=== PATIENT | male | born 1970 | race Caucasian/White ===

== ENCOUNTER 2016-03-09 19:00 | Emergency (ER) | payer SELFPAY ==
--- NOTE | 2016-03-09 19:57 | DIAGNOSTIC IMAGING REPORT ---
PROCEDURE: XR CHEST 1 VIEW INDICATION: COUGH TECHNIQUE: Portable AP view 07:30 p.m. COMPARISON: None. FINDINGS: Lungs are clear. Heart and mediastinum are normal. Thorax is normal. IMPRESSION: 1. Negative chest.
--- NOTE | 2016-03-10 00:42 | ED NURSING NOTES ---
Clinical Report - Nurses [facility] [address] [place] [address] 03/09/2016 19:00 Patient: MEMO DING TRIAGE Triage time 19:Mar 09 2016. Chief Complaint: SHORTNESS OF BREATH and DIFFICULTY BREATHING. Alert. MICHAEL COMA SCORE: Michael Coma Scale: 15- eyes open spontaneously (4); best verbal response- oriented x 4 (5); best motor response- obeys commands (6). --19:17 Marcial Navas R.N. 19:05 03/09/16. BP: 141/97. HR: 110. RR: 24. O2 saturation: 92% on room air. Temp: 99.4 F. Pain level now: 0/10. --19:17 Marcial Navas R.N. Weight: 68 kg stated. Height/Length: 70 inches Per Patient. BMI: 21.5. --19:09 Marcial aNvas R.N. Medications Albuterol Sulfate Inhalation, PRN. --19:13 Marcial Navas R.N. Medication/allergy information source: the patient. --19:17 Marcial Navas R.N. Allergies No Known Drug Allergy. --19:13 Marcial Navas R.N. History Arrived by private vehicle. Historian: patient. Accompanied by friend. Primary physician (none). ( SOB for the last 3 weeks.). Onset. (about 3 weeks ago). He has had a cough productive of moderate amounts of sputum. 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 PAST MEDICAL HX: Immunizations: up-to-date. SURGERY HX: No history of previous surgery. SOCIAL HX: Light tobacco smoker (cigarette)- less than 1/2 a pack per day. No alcohol use or drug use. No infectious disease exposure. ABUSE ASSESSMENT: No report of abuse. FALL RISK ASSESSMENT: Fall risk assessment completed. No fall risk identified. NUTRITIONAL RISK ASSESSMENT: The nutritional risk assessment revealed no deficiencies. FUNCTIONAL ASSESSMENT: Functional assessment: no impairments noted. LEARNING NEEDS ASSESSMENT: The learning needs assessment revealed no barriers. SKIN INTEGRITY ASSESSMENT: Skin integrity risk assessment completed. No skin integrity risk identified. --19:17 Marcial Navas R.N. PROBLEMS: Thyroid Disease. COPD - Chronic Obstructive Pulmonary Disease. --19:12 Marcial Navas R.N. ADDITIONAL SURGERIES: no known surgeries. Interventions ID band on patient. To treatment room. --19:17 Marcial Navas R.N. PHYSICAL ASSESSMENT Ambulatory to room. GENERAL / NEURO / PSYCH: Alert. Oriented X 4. HEENT: Mucous membranes are pink. RESPIRATORY: Moderate respiratory distress. Respirations not labored. Decreased breath sounds diffusely over both lungs. Expiratory and inspiratory bilateral wheezes diffusely. Breath sounds within normal limits. CVS: Cardiac rhythm: sinus tachycardia. Capillary refill less than 2 seconds. GI / : Abdomen soft and nontender. SKIN: Skin is warm and dry. Normal skin turgor. --19:16 Marcial Navas R.N. NURSING PROGRESS NOTES Oxygen administered by nasal cannula at 2 liters. Patient gowned. Reassurance given. Patient identifiers checked. Call light placed in reach. Side rails up. Bed placed in lowest position. Brakes of bed on. Patient ready for evaluation- chart flagged and ED physician and PA notified. --19:16 Marcial Navas R.N. 19:33 03/09/2016 Duoneb (Ipratropium-Albuterol) Neb TX 1 unit dose given. Given by the respiratory therapist. Allergies verified and confirmed 5 rights. --20:04 Marcial De La Cruz R.N. 19:56 03/09/2016 Site #1 started via IV in the left forearm with an 20g angiocath, with aseptic technique and good blood return; one attempt. Blood drawn: rainbow set. Labeled in the presence of the patient and sent to the lab. Saline lock flushed with 10 mL saline. --20:01 Marcial De La Cruz R.N. 19:57 03/09/2016 SOLU-MEDROL (MethylPREDNISolone Sodium Succ) IVP 125 mg given over 2 minute(s) via site #1. Allergies verified and confirmed 5 rights. IV patency established. IV site checked: no pain, redness, or swelling. IV flushed thoroughly pre- and post-medication administration. --20:01 Marcial De La Cruz R.N. 20:25 03/09/16. BP: 114/78. HR: 90. RR: 18. O2 saturation: 97%. Temp: 99 F (oral). Pain level now: 0/10. --20:27 Marcial Navas R.N. 19:58 03/09/2016 Albuterol Neb TX 7.5 mg given. Given by the respiratory therapist. Allergies verified and confirmed 5 rights. --22:03 Marcial De La Cruz R.N. 21:57 03/09/2016 Albuterol Neb TX 7.5 mg given. Given by the respiratory therapist. Allergies verified and confirmed 5 rights. --22:04 Marcial De La Cruz R.N. 22:03. Oxygen administered by nasal cannula at 2 liters. --22:05 Marcial De La Cruz R.N. 22:10. Oxygen administered (02 increased to 4lts). --22:10 Marcial De La Cruz R.N. 20:30 03/09/16. BP: 114/73. HR: 99. RR: 25. O2 saturation: 96% on room air. --22:40 Marcial Navas R.N. 21:00 03/09/16. BP: 115/66. HR: 106. RR: 29. O2 saturation: 94% on face mask at 6 liters/minute. --22:42 Marcial Navas R.N. 21:30 03/09/16. BP: 123/82. HR: 98. RR: 28. O2 saturation: 94% on face mask at 6 liters/minute. --22:44 Marcial Navas R.N. 22:00 03/09/16. BP: 107/66. HR: 104. RR: 27. O2 saturation: 94% on face mask at 6 liters/minute. --22:46 Marcial Navas R.N. 00:10 03/10/2016 Magnesium Sulfate (Magnesium Sulfate in D5W) IVP 2 gm given over 30 minute(s) via site #1. Allergies verified and confirmed 5 rights. IV patency established. IV site checked: no pain, redness, or swelling. IV flushed thoroughly pre- and post-medication administration. IVP given by --00:10 Marcial Navas R.N. DISPOSITION / DISCHARGE 00:35 03/10/16. BP: 115/68. HR: 88. RR: 18. O2 saturation: 91% on room air. Temp: 98.8 F (oral). Pain level now: 0/10. --05:06 Marcial Navas R.N. Departure time: 0045. --05:06 Marcial Navas R.N. 00:45. Condition at departure: improved. No learning barriers present. Discharge instructions provided and reviewed with the patient. Reviewed medication(s) precautions and dosing information (prescription given to pt). Reviewed referral to family practice. Patient verbalized understanding. Written instructions provided in Danish. The patient was discharged by the physician. He was discharged home and accompanied by front man. He left the Emergency Department ambulatory and via private vehicle. Counter Clerk driving. --05:09 Marcial Navas R.N. Locked/Released at 03/10/2016 5:09 by Marcial Navas R.N.
--- NOTE | 2016-03-10 00:42 | ED NURSING NOTES ---
Clinical Report - Nurses [facility] [address] [place] [address] 03/09/2016 19:00 Patient: MEMO DING TRIAGE Triage time 19:Mar 09 2016. Chief Complaint: SHORTNESS OF BREATH and DIFFICULTY BREATHING. Alert. MICHAEL COMA SCORE: Michael Coma Scale: 15- eyes open spontaneously (4); best verbal response- oriented x 4 (5); best motor response- obeys commands (6). --19:17 Marcial Navas R.N. 19:05 03/09/16. BP: 141/97. HR: 110. RR: 24. O2 saturation: 92% on room air. Temp: 99.4 F. Pain level now: 0/10. --19:17 Marcial Navas R.N. Weight: 68 kg stated. Height/Length: 70 inches Per Patient. BMI: 21.5. --19:09 Marcial Navas R.N. Medications Albuterol Sulfate Inhalation, PRN. --19:13 Marcial Navas R.N. Medication/allergy information source: the patient. --19:17 Marcial Navas R.N. Allergies No Known Drug Allergy. --19:13 Marcial Navas R.N. History Arrived by private vehicle. Historian: patient. Accompanied by friend. Primary physician (none). ( SOB for the last 3 weeks.). Onset. (about 3 weeks ago). He has had a cough productive of moderate amounts of sputum. 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 PAST MEDICAL HX: Immunizations: up-to-date. SURGERY HX: No history of previous surgery. SOCIAL HX: Light tobacco smoker (cigarette)- less than 1/2 a pack per day. No alcohol use or drug use. No infectious disease exposure. ABUSE ASSESSMENT: No report of abuse. FALL RISK ASSESSMENT: Fall risk assessment completed. No fall risk identified. NUTRITIONAL RISK ASSESSMENT: The nutritional risk assessment revealed no deficiencies. FUNCTIONAL ASSESSMENT: Functional assessment: no impairments noted. LEARNING NEEDS ASSESSMENT: The learning needs assessment revealed no barriers. SKIN INTEGRITY ASSESSMENT: Skin integrity risk assessment completed. No skin integrity risk identified. --19:17 Marcial Navas R.N. PROBLEMS: Thyroid Disease. COPD - Chronic Obstructive Pulmonary Disease. --19:12 Marcial Navas R.N. ADDITIONAL SURGERIES: no known surgeries. Interventions ID band on patient. To treatment room. --19:17 Marcial Navas R.N. PHYSICAL ASSESSMENT Ambulatory to room. GENERAL / NEURO / PSYCH: Alert. Oriented X 4. HEENT: Mucous membranes are pink. RESPIRATORY: Moderate respiratory distress. Respirations not labored. Decreased breath sounds diffusely over both lungs. Expiratory and inspiratory bilateral wheezes diffusely. Breath sounds within normal limits. CVS: Cardiac rhythm: sinus tachycardia. Capillary refill less than 2 seconds. GI / : Abdomen soft and nontender. SKIN: Skin is warm and dry. Normal skin turgor. --19:16 Marcial Navas R.N. NURSING PROGRESS NOTES Oxygen administered by nasal cannula at 2 liters. Patient gowned. Reassurance given. Patient identifiers checked. Call light placed in reach. Side rails up. Bed placed in lowest position. Brakes of bed on. Patient ready for evaluation- chart flagged and ED physician and PA notified. --19:16 Marcial Navas R.N. 19:33 03/09/2016 Duoneb (Ipratropium-Albuterol) Neb TX 1 unit dose given. Given by the respiratory therapist. Allergies verified and confirmed 5 rights. --20:04 Marcial De La Cruz R.N. 19:56 03/09/2016 Site #1 started via IV in the left forearm with an 20g angiocath, with aseptic technique and good blood return; one attempt. Blood drawn: rainbow set. Labeled in the presence of the patient and sent to the lab. Saline lock flushed with 10 mL saline. --20:01 Marcial De La Cruz R.N. 19:57 03/09/2016 SOLU-MEDROL (MethylPREDNISolone Sodium Succ) IVP 125 mg given over 2 minute(s) via site #1. Allergies verified and confirmed 5 rights. IV patency established. IV site checked: no pain, redness, or swelling. IV flushed thoroughly pre- and post-medication administration. --20:01 Marcial De La Cruz R.N. 20:25 03/09/16. BP: 114/78. HR: 90. RR: 18. O2 saturation: 97%. Temp: 99 F (oral). Pain level now: 0/10. --20:27 Marcial Navas R.N. 19:58 03/09/2016 Albuterol Neb TX 7.5 mg given. Given by the respiratory therapist. Allergies verified and confirmed 5 rights. --22:03 Marcial De La Cruz R.N. 21:57 03/09/2016 Albuterol Neb TX 7.5 mg given. Given by the respiratory therapist. Allergies verified and confirmed 5 rights. --22:04 Marcial De La Cruz R.N. 22:03. Oxygen administered by nasal cannula at 2 liters. --22:05 Marcial De La Cruz R.N. 22:10. Oxygen administered (02 increased to 4lts). --22:10 Marcial De La Cruz R.N. 20:30 03/09/16. BP: 114/73. HR: 99. RR: 25. O2 saturation: 96% on room air. --22:40 Marcial Navas R.N. 21:00 03/09/16. BP: 115/66. HR: 106. RR: 29. O2 saturation: 94% on face mask at 6 liters/minute. --22:42 Marcial Navas R.N. 21:30 03/09/16. BP: 123/82. HR: 98. RR: 28. O2 saturation: 94% on face mask at 6 liters/minute. --22:44 Marcial Navas R.N. 22:00 03/09/16. BP: 107/66. HR: 104. RR: 27. O2 saturation: 94% on face mask at 6 liters/minute. --22:46 Marcial Navas R.N. 00:10 03/10/2016 Magnesium Sulfate (Magnesium Sulfate in D5W) IVP 2 gm given over 30 minute(s) via site #1. Allergies verified and confirmed 5 rights. IV patency established. IV site checked: no pain, redness, or swelling. IV flushed thoroughly pre- and post-medication administration. IVP given by --00:10 Marcial Navas R.N. DISPOSITION / DISCHARGE 00:35 03/10/16. BP: 115/68. HR: 88. RR: 18. O2 saturation: 91% on room air. Temp: 98.8 F (oral). Pain level now: 0/10. --05:06 Marcial Navas R.N. Departure time: 0045. --05:06 Marcial Navas R.N. 00:45. Condition at departure: improved. No learning barriers present. Discharge instructions provided and reviewed with the patient. Reviewed medication(s) precautions and dosing information (prescription given to pt). Reviewed referral to family practice. Patient verbalized understanding. Written instructions provided in Croatian. The patient was discharged by the physician. He was discharged home and accompanied by supervisor keymodule assembly. He left the Emergency Department ambulatory and via private vehicle. Chain Maker Loom Control driving. --05:09 Marcial Navas R.N. Locked/Released at 03/10/2016 5:09 by Marcial Navas R.N.
--- NOTE | 2016-03-10 00:42 | ED CLINICAL REPORT ---
Clinical Report - Physicians/Mid Levels [facility] [address] [place] [address] 03/09/2016 19:00 Patient: MEMO DING Time Seen: 1909; initial patient contact. Arrived- By private vehicle. Historian- patient. HISTORY OF PRESENT ILLNESS Chief Complaint: WHEEZING. This started Past several weeks and is still present (staying the same). It was abrupt in onset and has been waxing/waning but is not gone now. The dyspnea is described as moderate. He has had dyspnea at rest. The patient has had sputum production and a cough. (wheezing). No chest pain or discomfort. Asthma triggers: unknown. Takes asthma medications. Similar symptoms previously: None. Recent medical care: Not recently seen/assessed. REVIEW OF SYSTEMS No sore throat or nasal discharge. All systems otherwise negative, except as recorded above. PAST HISTORY See nurses notes. Additional Surgeries: no known surgeries. Medications: Albuterol Sulfate Inhalation, PRN. Allergies: No Known Drug Allergy. SOCIAL HISTORY Smoker- current status unknown. No alcohol use or drug use. No recent travel. Is a local resident. ADDITIONAL NOTES The nursing notes have been reviewed. PHYSICAL EXAM Vital Signs: 03/09/2016 19:05 BP: 141/97. HR: 110. RR: 24. O2 saturation: 92%. Temp: 99.4 F. Pain level now: 0/10. Blood pressure normal. Oxygen saturation normal. Appearance: Alert. Patient in mild distress. Eyes: Pupils equal, round and reactive to light. Eyes normal inspection. ENT: Ears normal. Nose normal. Pharynx normal. Uvula midline. Neck: Normal inspection. Neck supple. CVS: Tachycardia. Heart sounds normal. Pulses normal. Respiratory: Respiratory distress. Accessory muscle use. Decreased air movement. Expiratory moderate bilateral wheezes diffusely. No stridor, rales or rhonchi. Abdomen: Soft and nontender. No organomegaly. Back: Normal inspection. Skin: Skin warm and dry. Normal skin color. No rash. Normal skin turgor. Extremities: Extremities exhibit normal ROM. No lower extremity edema. Neuro: Oriented X 3. No motor deficit. No sensory deficit. LABS, X-RAYS, AND EKG Chest X-ray: (PROCEDURE: XR CHEST 1 VIEW INDICATION: COUGH TECHNIQUE: Portable AP view 07:30 p.m. COMPARISON: None. FINDINGS: Lungs are clear. Heart and mediastinum are normal. Thorax is normal. IMPRESSION: 1. Negative chest.). Views: PA. Technique: good. The X-rays were independently viewed by me and interpreted by the radiologist. The X-rays were discussed with the radiologist (via pacs). Laboratory Tests: CBC w Diff: (KARTIK: 03/09/2016 20:00) ( MsgRcvd 03/09/2016 20:26) Final results Test Result Flag Units (Reference) WHITE BLOOD COUNT 15.6 H K/uL (4.5-11.5) RED BLOOD COUNT 4.54 M/uL (4.50-5.90) HEMOGLOBIN 14.2 gm/dL (13.5-17.5) HEMATOCRIT 42.4 % (41.0-53.0) MEAN CELL VOLUME 93 fL (80-100) MEAN CORPUSCULAR HGB 31 pg (26-34) MEAN CORPUSCULAR HGB CONC 34 g/dL (31-37) RED CELL DISTRIBUTION WIDTH 14.4 % (11.6-14.8) PLATELET COUNT 277 K/uL (150-400) NEUTROPHIL % 72.7 % (50-75) LYMPH % 15.4 L % (25-40) MONO % 9.7 % (3-14) EOSINOPHIL % 1.6 % (0-4) BASOPHIL % 0.6 % (0-2) Magnesium: (KARTIK: 03/09/2016 23:45) ( MsgRcvd 03/09/2016 23:57) Final results Test Result Flag Units (Reference) MAGNESIUM 1.9 mg/dL (1.8-2.4) BMP: (KARTIK: 03/09/2016 20:00) ( MsgRcvd 03/09/2016 20:28) Final results Test Result Flag Units (Reference) GLUCOSE 92 mg/dL (70-110) BUN 15 mg/dL (7-18) CREATININE 1.0 mg/dL (0.6-1.3) Estimated GFR >60 mL/min Estimated GFR- >60 mL/min Note: Persistent reduction over 3 months in eGFR<60 mL/min/1.73 m2 defines CKD. Patients with eGFR values>=60 mL/min/1.73 m2 may also have CKD if evidence ofpersistent proteinuria. Additional information may be foundat www.kidney.org. SODIUM 135 L mmol/L (136-145) POTASSIUM 3.8 mmol/L (3.5-5.1) CHLORIDE 102 mmol/L (98-107) CARBON DIOXIDE 28 mmol/L (21-32) CALCIUM 8.8 mg/dL (8.5-10.1) . PROGRESS AND PROCEDURES Course of Care: the patient is a pleasant [id number]-[id number]-lim woman with history of COPD and smoking presented for evaluation of wheezing. Vision is in a mild amount of distress. Patient with diffuse wheezing on examination. No crackles. I discussed with patient in regards to treatment plan. Patient is agreeable to the treatment plan. IV Solu-Medrol as well as chest x-ray including DuoNeb will be ordered. Patient with decreased air movement and will likely need further breathing treatments. We'll monitor closely. After the DuoNeb treatment was given, patient reported improvement with his symptoms. Patient still is with decreased air movements in lungs bilaterally and with severe wheezing. Patient is agreeable to having a continuous breathing treatment at this time. Workup shows patient to still have difficulty with breathing. Patient is still short of breath with decreased air movement however significantly improved from initial evaluation. Patient be getting another 1 hour continuous breathing treatment. Chest x-ray shows no acute consolidations. Laboratory tests are otherwise unremarkable. Disposition by oncoming physician at shift change. Dr. Wharton and I reviewed the patient's history and exam findings and the results of his studies. I subsequently reviewed this with the patient and examined him and my findings were consistent with those noted by Dr. Wharton. The patient continued to have lower oxygen saturations and when I talked with him about this he said that his baseline is typically 91% on room air. He says that he is feeling much better. I ordered magnesium sulfate 2 g intravenously over 20 minutes. And he had further improvement in his breathing. - MW. Symptoms better. Vital signs have been reviewed. Physical exam findings are improved. Alert. No acute distress. Decreased breath sounds. No respiratory distress. No chest retractions or wheezes. Tachycardic. Abdomen soft and nontender. Skin warm and dry. Patient/family counseled. Old medical records ordered. Old records unavailable. Disposition: Discharged. Condition: stable. CLINICAL IMPRESSION COPD. INSTRUCTIONS Do not smoke- benefits of smoking cessation discussed (>3 -10 minutes). Seek medical help to quit smoking. Warnings: Further evaluation is necessary. GENERAL WARNINGS: Return or contact your physician immediately if your condition worsens or changes unexpectedly, if not improving as expected, or if other problems arise. Your Current Medications: CONTINUE TAKING THE FOLLOWING MEDICATIONS: Albuterol Sulfate Inhalation : PRN. Prescription Medications: Albuterol HFA oral inhaler: inhale 2 puffs via spacer every 4 hours as needed. Dispense one (1) unit. No refill. Albuterol 0.083% Inhalation Solution: inhale 1 unit dose (3 mL) via nebulizer every 6 hours as needed for breathing problems. Dispense twenty-five (25) units. No refills. Prednisone 20 mg: take 3 orally every day for 5 days. Dispense fifteen (15). No refills. Zithromax 250 mg tablets: take 2 orally today, followed by 1 daily for the next 4 days. No refills. Substitution is permissible. Understanding of the discharge instructions verbalized by patient. Follow-up with: [facility], , , [address], , [place], [id number] Follow up tomorrow. Call for an appointment. (Electronically signed by Valentín Messina MD 03/12/2016 18:50)
--- NOTE | 2016-03-10 00:42 | ED ORDER SUMMARY ---
..... Patient: MEMO DING OrderSheet [facility] VisitID: [id number] [place] [address] 46y, M Registration Date/Time: 03/09/2016 ORDER SHEET Weight: 68.0 kg (stated) Allergies: No Known Drug Allergy GENERAL ORDERS: Personalized Living Assistant (Continuous) (Respiratory Distress) (19:21 03/09/2016 Pascual Wright) (20:00 JQuivey R.N.) Chest 1V Urgent (19:22 03/09/2016 Pascual Wright) (Ack 19:24 NHouse ER Tech1) (19:36 NHouse ER Tech1) CBC w Diff Urgent (19:03/09/2016 Pascual Wright) (Ack 19:24 NHouse ER Tech1) (20:01 JQuivey R.N.) BMP Urgent (19:03/09/2016 Pascual Wright) (Ack 19:24 NHouse ER Tech1) (20:01 JQuivey R.N.) Pulse oximeter (19:22 03/09/2016 Pascual Wright) (20:00 JQuivey R.N.) Magnesium Urgent (23:45 03/09/2016 Dashawn PAGAN) (23:49 JRomanelli R.N.) MEDICATION ORDERS: Albuterol Neb Tx 7.5 mg (once over an hour after duoneb treatment) (19:23 03/09/2016 Pascual Wright) (Ack 19:52 JQuivey R.N.) (22:03 JQuivey R.N.) DuoNeb Neb Tx 1 unit dose (NOW) (20:04 03/09/2016 SaidaQuivey R.N. per protocol) (20:04 JQuivey R.N.) Albuterol Neb Tx 7.5 mg (once now over 1 hour) (21:24 03/09/2016 Pascual Wright) (22:04 JQuivey R.N.) IV FLUIDS: Solu-MEDROL IV 125 mg (NOW) (19:03/09/2016 Pascual Wright) (Ack 19:52 JQuivey R.N.) (20:01 Katie R.N.) IV Saline Lock (19:22 03/09/2016 Pascual Wright) (Ack 19:52 Katie R.N.) (20:01 Katie Parra.N.) Magnesium Sulfate IV 2 gm/50mL (over 20 minutes) (00:04 03/10/2016 Dashawn PAGAN) (0:10 Asim Mason) ORDER SHEET NOTES: [Electronically signed by Marcial Navas R.N. (05:09 03/10/2016)] [Electronically signed by Valentín Messina MD (18:50 03/12/2016)] [Electronically locked/signed by Marcial Navas R.N. (05:03/10/2016)]
--- NOTE | 2016-03-10 00:42 | ED ORDER SUMMARY ---
..... Patient: MEMO DING OrderSheet [facility] VisitID: [id number] [place] [address] 46y, M Registration Date/Time: 03/09/2016 ORDER SHEET Weight: 68.0 kg (stated) Allergies: No Known Drug Allergy GENERAL ORDERS: Water Resource Project Manager (Continuous) (Respiratory Distress) (19:21 03/09/2016 Pascual Wright) (20:00 JQuivey R.N.) Chest 1V Urgent (19:22 03/09/2016 Pascual Wright) (Ack 19:24 NHouse ER Tech1) (19:36 NHouse ER Tech1) CBC w Diff Urgent (19:03/09/2016 Pascual Wright) (Ack 19:24 NHouse ER Tech1) (20:01 JQuivey R.N.) BMP Urgent (19:03/09/2016 Pascual Wright) (Ack 19:24 NHouse ER Tech1) (20:01 JQuivey R.N.) Pulse oximeter (19:22 03/09/2016 Pascual Wright) (20:00 JQuivey R.N.) Magnesium Urgent (23:45 03/09/2016 Dashawn PAGAN) (23:49 JRomanelli R.N.) MEDICATION ORDERS: Albuterol Neb Tx 7.5 mg (once over an hour after duoneb treatment) (19:23 03/09/2016 Pascual Wright) (Ack 19:52 JQuivey R.N.) (22:03 JQuivey R.N.) DuoNeb Neb Tx 1 unit dose (NOW) (20:04 03/09/2016 SaidaQuivey R.N. per protocol) (20:04 JQuivey R.N.) Albuterol Neb Tx 7.5 mg (once now over 1 hour) (21:24 03/09/2016 Pascual Wright) (22:04 JQuivey R.N.) IV FLUIDS: Solu-MEDROL IV 125 mg (NOW) (19:03/09/2016 Pascual Wright) (Ack 19:52 JQuivey R.N.) (20:01 Katie R.N.) IV Saline Lock (19:22 03/09/2016 Pascual Wright) (Ack 19:52 Katie R.N.) (20:01 Katie Parra.N.) Magnesium Sulfate IV 2 gm/50mL (over 20 minutes) (00:04 03/10/2016 Dashawn PAGAN) (0:10 Asim Mason) ORDER SHEET NOTES: [Electronically signed by Marcial Navas R.N. (05:09 03/10/2016)] [Electronically signed by Valentín Messina MD (18:50 03/12/2016)] [Electronically locked/signed by Marcial Navas R.N. (05:03/10/2016)]
--- NOTE | 2016-03-12 18:50 | ED MED RECONCILIATION SUMMARY ---
Patient: MEMO DING Medication Reconciliation Report [facility] VisitID: [id number] [place] [address] 46y, M Registration Date/Time: 03/09/2016 Weight: 68.0 kg Height/Length: 70 in. BMI: 21.5 ALLERGIES: No Known Drug Allergy The patient's Home Medications are listed below: CONTINUE TAKING THE FOLLOWING MEDICATIONS: Albuterol Sulfate Inhalation, PRN The source(s) of the original Home Medication information: patient The following Medications were given to the patient in the Emergency Department: SOLU-MEDROL [IVP] IVP 125 mg, administered: 03/09/2016 7:57:00 PM Duoneb [Neb Tx] Neb TX 1 unit dose, administered: 03/09/2016 7:33:00 PM Albuterol [Neb Tx] Neb TX 7.5 mg, administered: 03/09/2016 7:58:00 PM Albuterol [Neb Tx] Neb TX 7.5 mg, administered: 03/09/2016 9:57:00 PM Magnesium Sulfate [IVP] IVP 2 gm, administered: 03/10/2016 12:10:00 AM The following Medications were prescribed to the patient: Albuterol HFA oral inhaler: inhale 2 puffs via spacer every 4 hours as needed. Dispense one (1) unit. No refill. -- Valentín Messina MD Albuterol 0.083% Inhalation Solution: inhale 1 unit dose (3 mL) via nebulizer every 6 hours as needed for breathing problems. Dispense twenty-five (25) units. No refills. -- Valentín Messina MD Prednisone 20 mg: take 3 orally every day for 5 days. Dispense fifteen (15). No refills. -- Valentín Messina MD Zithromax 250 mg tablets: take 2 orally today, followed by 1 daily for the next 4 days. No refills. Substitution is permissible. -- Valentín Messina MD
--- NOTE | 2016-03-12 18:50 | ED MED RECONCILIATION SUMMARY ---
Patient: MEMO DING Medication Reconciliation Report [facility] VisitID: [id number] [place] [address] 46y, M Registration Date/Time: 03/09/2016 Weight: 68.0 kg Height/Length: 70 in. BMI: 21.5 ALLERGIES: No Known Drug Allergy The patient's Home Medications are listed below: CONTINUE TAKING THE FOLLOWING MEDICATIONS: Albuterol Sulfate Inhalation, PRN The source(s) of the original Home Medication information: patient The following Medications were given to the patient in the Emergency Department: SOLU-MEDROL [IVP] IVP 125 mg, administered: 03/09/2016 7:57:00 PM Duoneb [Neb Tx] Neb TX 1 unit dose, administered: 03/09/2016 7:33:00 PM Albuterol [Neb Tx] Neb TX 7.5 mg, administered: 03/09/2016 7:58:00 PM Albuterol [Neb Tx] Neb TX 7.5 mg, administered: 03/09/2016 9:57:00 PM Magnesium Sulfate [IVP] IVP 2 gm, administered: 03/10/2016 12:10:00 AM The following Medications were prescribed to the patient: Albuterol HFA oral inhaler: inhale 2 puffs via spacer every 4 hours as needed. Dispense one (1) unit. No refill. -- Valentín Messina MD Albuterol 0.083% Inhalation Solution: inhale 1 unit dose (3 mL) via nebulizer every 6 hours as needed for breathing problems. Dispense twenty-five (25) units. No refills. -- Valentín Messina MD Prednisone 20 mg: take 3 orally every day for 5 days. Dispense fifteen (15). No refills. -- Valentín Messina MD Zithromax 250 mg tablets: take 2 orally today, followed by 1 daily for the next 4 days. No refills. Substitution is permissible. -- Valentín Messina MD
--- NOTE | 2016-03-12 18:50 | ED DISCHARGE INSTRUCTIONS ---
Patient: MEMO DING General Instructions [facility] VisitID: [id number] [address], [place] [address] 46y, M Registration Date/Time: 03/09/2016 COPD. INSTRUCTIONS Do not smoke- benefits of smoking cessation discussed (>3 -10 minutes). Seek medical help to quit smoking. Warnings: Further evaluation is necessary. GENERAL WARNINGS: Return or contact your physician immediately if your condition worsens or changes unexpectedly, if not improving as expected, or if other problems arise. Your Current Medications: CONTINUE TAKING THE FOLLOWING MEDICATIONS: Albuterol Sulfate Inhalation : PRN. Prescription Medications: Albuterol HFA oral inhaler: inhale 2 puffs via spacer every 4 hours as needed. Dispense one (1) unit. No refill. Albuterol 0.083% Inhalation Solution: inhale 1 unit dose (3 mL) via nebulizer every 6 hours as needed for breathing problems. Dispense twenty-five (25) units. No refills. Prednisone 20 mg: take 3 orally every day for 5 days. Dispense fifteen (15). No refills. Zithromax 250 mg tablets: take 2 orally today, followed by 1 daily for the next 4 days. No refills. Substitution is permissible. Understanding of the discharge instructions verbalized by patient. Follow-up with: [facility], , , [address], , [place], [id number] Follow up tomorrow. Call for an appointment. ADDITIONAL INFORMATION COPD Flare Both emphysema and chronic bronchitis are forms of chronic obstructive pulmonary disease (COPD). It is most often caused by many years of smoking tobacco. Many things can make your lung disease suddenly get worse. These causes include the common cold, pneumonia, acute bronchitis, missing doses of your regular breathing medicines, or being around smoke, dust, or other air pollutants. A COPD flare may last 7 to 14 days. Your doctor may prescribe medicineto relax your airways and prevent wheezing. Your doctor may also prescribe antibiotics if he or she thinks you havea bacterial infection. Prednisone can helpease inflammation in a severe attack. Home care Here are things you can do at home: Drink lots of water or other fluids (at least 10 glasses a day) during an attack. This will loosen lung secretions and make it easier to breathe. If you have heart or kidney disease, check with your doctor before you drink extra amounts of fluids. Take prescribed medicine exactly at the times advised. If you have a hand-held inhaler or aerosol breathing medicine, don't use it more than once every 4 hours, unless your doctor tells you to. If you were givenan antibiotic or prednisone, take all of the medicine even if you are feeling better after a few days. Don't smoke. Avoid being aroundthe smoke of others. If you were given an inhaler, use it exactly as directed. If you need to use it more often than prescribed, your condition may be getting worse. Call your doctor. Follow-up care Follow up with your health care provider.If you are 65 or older or have chronic asthma or COPD, you should get a single dose of the pneumococcal vaccine and aflu shot each year. You may need a second dose of the pneumococcal vaccine if you had the first dose at a younger age. Your health care provider will let you know if you need a second dose. For all other people, the usual dose for the pneumococcal vaccine is 1 or 2 shots. Yourprovider can discuss this with you. When to seek medical care Get prompt medical attention ifany of these occur: Increased wheezing or shortness of breath Need to use your inhalers more often than usual without relief Fever of 100.4F(38C) or higher, or as directed by your health care provider Coughing up lots of dark-colored or bloody sputum (mucus) Chest pain with each breath You do not start to improve within 24 hours How To Quit Smoking Smoking is one of the hardest habits to break. About half of all those who have ever smoked have been able to quit, and most of those (about 70%) who still smoke want to quit. Here are some of the best ways to stop smoking. Keep Trying: It takes most smokers about 8 tries before they are finally able to fully quit. So, the more often you try and fail, the better your chance of quitting the next time! So, don't give up! Go Cold [place]: Most ex-smokers quit cold turkey. Trying to cut back gradually doesn't seem to work as well, perhaps because it continues the smoking habit. Also, it is possible to fool yourself by inhaling more while smoking fewer cigarettes. This results in the same amount of nicotine in your body! Get Support: Support programs can make an important difference, especially for the heavy smoker. These groups offer lectures, methods to change your behavior and peer support. Call the free national Quitline for more information. 299-NJSO-AYM (074-725-0927). Low-cost or free programs are offered by many hospitals, local chapters of the [place] [employer] (894-824-5991) and the [place] [employer] (682-969-8669). Support at home is important too. Non-smokers can help by offering praise and encouragement. If the smoker fails to quit, encourage them to try again! [id number] Medicines: For those who can't quit on their own, Nicotine Replacement Therapy (NRT) may make quitting much easier. Certain aids such as the nicotine patch, gum and lozenge are available without a prescription. However, it is best to use these under the guidance of your doctor. The skin patch provides a steady supply of nicotine to the body. Nicotine gum and lozenge gives temporary bursts of low levels of nicotine. Both methods take the edge off the craving for cigarettes. WARNING: If you feel symptoms of nicotine overdose, such as nausea, vomiting, dizziness, weakness, or fast heartbeat, stop using these and see your doctor. Prescription Medicines: After evaluating your smoking patterns and prior attempts at quitting, your doctor may offer a prescription medicine such as bupropion (Zyban, Wellbutrin), varenicline (Chantix, Champix), a niocotine inhaler or nasal spray. Each has its unique advantage and side effects which your doctor can review with you. Health Benefits Of Quitting: The benefits of quitting start right away and keep improving the longer you go without smokin minutes: blood pressure and pulse return to normal 8 hours: oxygen levels return to normal 2 days: ability to smell and taste begins to improve as damaged nerves start to regrow 2-3 weeks: circulation and lung function improves 1-9 months: decreased cough, congestion and shortness of breath; less tired 1 year: risk of heart attack decreases by half 5 years: risk of lung cancer decreases by half; risk of stroke becomes the same as a non-smoker For information about how to quit smoking, visit the following links: National [employer] [place] , Clearing the Air, Quit Smoking Today - an online booklet. http://www.smokefree.gov/pubs/clearing_the_air.pdf Smokefree.gov http://smokefree.gov/ QuitNet http://www.quitnet.com/ Albuterol Sulfate Pressurized inhalation, suspension What is this medicine? ALBUTEROL (al BYOO ter ole) is a bronchodilator. It helps open up the airways in your lungs to make it easier to breathe. This medicine is used to treat and to prevent bronchospasm. How should I use this medicine? This medicine is for inhalation through the mouth. Follow the directions on your prescription label. Take your medicine at regular intervals. Do not use more often than directed. Make sure that you are using your inhaler correctly. Ask you doctor or health care provider if you have any questions. Talk to your control panel operator crude unit regarding the use of this medicine in children. Special care may be needed. What side effects may I notice from receiving this medicine? Side effects that you should report to your doctor or health floor care technician as soon as possible: allergic reactions like skin rash, itching or hives, swelling of the face, lips, or tongue breathing problems chest pain feeling faint or lightheaded, falls high blood pressure irregular heartbeat fever muscle cramps or weakness pain, tingling, numbness in the hands or feet vomiting Side effects that usually do not require medical attention (report to your doctor or health floor care technician if they continue or are bothersome): cough difficulty sleeping headache nervousness or trembling stomach upset stuffy or runny nose throat irritation unusual taste What may interact with this medicine? anti-infectives like chloroquine and pentamidine caffeine cisapride diuretics medicines for colds medicines for depression or for emotional or psychotic conditions medicines for weight loss including some herbal products methadone some antibiotics like clarithromycin, erythromycin, levofloxacin, and linezolid some heart medicines steroid hormones like dexamethasone, cortisone, hydrocortisone theophylline thyroid hormones What if I miss a dose? If you miss a dose, use it as soon as you can. If it is almost time for your next dose, use only that dose. Do not use double or extra doses. Where should I keep my medicine? Keep out of the reach of children. Store at room temperature between 15 and 30 degrees C (59 and 86 degrees F). The contents are under pressure and may burst when exposed to heat or flame. Do not freeze. This medicine does not work as well if it is too cold. Throw away any unused medicine after the expiration date. Inhalers need to be thrown away after the labeled number of puffs have been used or by the expiration date; whichever comes first. Ventolin HFA should be thrown away 12 months after removing from foil pouch. Check the instructions that come with your medicine. What should I tell my health care provider before I take this medicine? They need to know if you have any of the following conditions: diabetes heart disease or irregular heartbeat high blood pressure pheochromocytoma seizures thyroid disease an unusual or allergic reaction to albuterol, levalbuterol, sulfites, other medicines, foods, dyes, or preservatives or trying to get breast-feeding What should I watch for while using this medicine? Tell your doctor or health floor care technician if your symptoms do not improve. Do not use extra albuterol. If your asthma or bronchitis gets worse while you are using this medicine, call your doctor right away. If your mouth gets dry try chewing sugarless gum or sucking hard candy. Drink water as directed. Albuterol Sulfate Nebulizer solution What is this medicine? ALBUTEROL (al BYOO ter ole) is a bronchodilator. It helps to open up the airways in your lungs to make it easier to breathe. This medicine is used to treat and to prevent bronchospasm. How should I use this medicine? This medicine is used in a nebulizer. Nebulizers make a liquid into an aerosol that you breathe in through your mouth or your mouth and nose into your lungs. You will be taught how to use your nebulizer. Follow the directions on your prescription label. Take your medicine at regular intervals. Do not use more often than directed. Talk to your control panel operator crude unit regarding the use of this medicine in children. Special care may be needed. What side effects may I notice from receiving this medicine? Side effects that you should report to your doctor or health floor care technician as soon as possible: allergic reactions like skin rash, itching or hives, swelling of the face, lips, or tongue breathing problems chest pain feeling faint or lightheaded, falls high blood pressure irregular heartbeat fever muscle cramps or weakness pain, tingling, numbness in the hands or feet vomiting Side effects that usually do not require medical attention (report to your doctor or health floor care technician if they continue or are bothersome): cough difficulty sleeping headache nervousness, trembling stomach upset stuffy or runny nose throat irritation unusual taste What may interact with this medicine? anti-infectives like chloroquine and pentamidine caffeine cisapride diuretics medicines for colds medicines for depression or emotional or psychotic conditions medicines for weight loss including some herbal products methadone some antibiotics like clarithromycin, erythromycin, levofloxacin, and linezolid some heart medicines steroid hormones like dexamethasone, cortisone, hydrocortisone theophylline thyroid hormones What if I miss a dose? If you miss a dose, use it as soon as you can. If it is almost time for your next dose, use only that dose. Do not use double or extra doses. Where should I keep my medicine? Keep out of the reach of children. Store between 2 and 25 degrees C (36 and 77 degrees F). Do not freeze. Protect from light. Throw away any unused medicine after the expiration date. Most products are kept in the foil package until time of use. Some products can be used up to 1 week after they are removed from the foil pouch. Check the instructions that come with your medicine. What should I tell my health care provider before I take this medicine? They need to know if you have any of the following conditions: diabetes heart disease or irregular heartbeat high blood pressure pheochromocytoma seizures thyroid disease an unusual or allergic reaction to albuterol, levalbuterol, sulfites, other medicines, foods, dyes, or preservatives or trying to get breast-feeding What should I watch for while using this medicine? Tell your doctor or health floor care technician if your symptoms do not improve. Do not use extra albuterol. Call your doctor right away if your asthma or bronchitis gets worse while you are using this medicine. If your mouth gets dry try chewing sugarless gum or sucking hard candy. Drink water as directed. Prednisone Oral tablet What is this medicine? PREDNISONE (PRED ni sone) is a corticosteroid. It is commonly used to treat inflammation of the skin, joints, lungs, and other organs. Common conditions treated include asthma, allergies, and arthritis. It is also used for other conditions, such as blood disorders and diseases of the adrenal glands. How should I use this medicine? Take this medicine by mouth with a glass of water. Follow the directions on the prescription label. Take this medicine with food. If you are taking this medicine once a day, take it in the morning. Do not take more medicine than you are told to take. Do not suddenly stop taking your medicine because you may develop a severe reaction. Your doctor will tell you how much medicine to take. If your doctor wants you to stop the medicine, the dose may be slowly lowered over time to avoid any side effects. Talk to your control panel operator crude unit regarding the use of this medicine in children. Special care may be needed. What side effects may I notice from receiving this medicine? Side effects that you should report to your doctor or health floor care technician as soon as possible: allergic reactions like skin rash, itching or hives, swelling of the face, lips, or tongue changes in emotions or moods changes in vision depressed mood eye pain fever or chills, cough, sore throat, pain or difficulty passing urine increased thirst swelling of ankles, feet Side effects that usually do not require medical attention (report to your doctor or health floor care technician if they continue or are bothersome): confusion, excitement, restlessness headache nausea, vomiting skin problems, acne, thin and shiny skin trouble sleeping weight gain What may interact with this medicine? Do not take this medicine with any of the following medications: metyrapone mifepristone This medicine may also interact with the following medications: aminoglutethimide amphotericin B aspirin and aspirin-like medicines barbiturates certain medicines for diabetes, like glipizide or glyburide cholestyramine cholinesterase inhibitors cyclosporine digoxin diuretics ephedrine female hormones, like estrogens and control pills isoniazid ketoconazole NSAIDS, medicines for pain and inflammation, like ibuprofen or naproxen phenytoin rifampin toxoids vaccines warfarin What if I miss a dose? If you miss a dose, take it as soon as you can. If it is almost time for your next dose, talk to your doctor or health floor care technician. You may need to miss a dose or take an extra dose. Do not take double or extra doses without advice. Where should I keep my medicine? Keep out of the reach of children. Store at room temperature between 15 and 30 degrees C (59 and 86 degrees F). Protect from light. Keep container tightly closed. Throw away any unused medicine after the expiration date. What should I tell my health care provider before I take this medicine? They need to know if you have any of these conditions: Nadia's syndrome diabetes glaucoma heart disease high blood pressure infection (especially a virus infection such as chickenpox, cold sores, or herpes) kidney disease liver disease mental illness myasthenia gravis osteoporosis seizures stomach or intestine problems thyroid disease an unusual or allergic reaction to lactose, prednisone, other medicines, foods, dyes, or preservatives or trying to get breast-feeding What should I watch for while using this medicine? Visit your doctor or health floor care technician for regular checks on your progress. If you are taking this medicine over a prolonged period, carry an identification card with your name and address, the type and dose of your medicine, and your doctor's name and address. This medicine may increase your risk of getting an infection. Tell your doctor or health floor care technician if you are around anyone with measles or chickenpox, or if you develop sores or blisters that do not heal properly. If you are going to have surgery, tell your doctor or health floor care technician that you have taken this medicine within the last twelve months. Ask your doctor or health floor care technician about your diet. You may need to lower the amount of salt you eat. This medicine may affect blood sugar levels. If you have diabetes, check with your doctor or health floor care technician before you change your diet or the dose of your diabetic medicine. Azithromycin Oral tablet What is this medicine? AZITHROMYCIN (az ith juan ATULE sin) is a macrolide antibiotic. It is used to treat or prevent certain kinds of bacterial infections. It will not work for colds, flu, or other viral infections. How should I use this medicine? Take this medicine by mouth with a full glass of water. Follow the directions on the prescription label. The tablets can be taken with food or on an empty stomach. If the medicine upsets your stomach, take it with food. Take your medicine at regular intervals. Do not take your medicine more often than directed. Take all of your medicine as directed even if you think your are better. Do not skip doses or stop your medicine early. Talk to your control panel operator crude unit regarding the use of this medicine in children. Special care may be needed. What side effects may I notice from receiving this medicine? Side effects that you should report to your doctor or health floor care technician as soon as possible: allergic reactions like skin rash, itching or hives, swelling of the face, lips, or tongue confusion, nightmares or hallucinations dark urine difficulty breathing hearing loss irregular heartbeat or chest pain pain or difficulty passing urine redness, blistering, peeling or loosening of the skin, including inside the mouth white patches or sores in the mouth yellowing of the eyes or skin Side effects that usually do not require medical attention (report to your doctor or health floor care technician if they continue or are bothersome): diarrhea dizziness, drowsiness headache stomach upset or vomiting tooth discoloration vaginal irritation What may interact with this medicine? Do not take this medicine with any of the following medications: lincomycin This medicine may also interact with the following medications: amiodarone antacids cyclosporine digoxin magnesium nelfinavir phenytoin warfarin What if I miss a dose? If you miss a dose, take it as soon as you can. If it is almost time for your next dose, take only that dose. Do not take double or extra doses. Where should I keep my medicine? Keep out of the reach of children. Store at room temperature between 15 and 30 degrees C (59 and 86 degrees F). Throw away any unused medicine after the expiration date. What should I tell my health care provider before I take this medicine? They need to know if you have any of these conditions: kidney disease liver disease irregular heartbeat or heart disease an unusual or allergic reaction to azithromycin, erythromycin, other macrolide antibiotics, foods, dyes, or preservatives or trying to get breast-feeding What should I watch for while using this medicine? Tell your doctor or health floor care technician if your symptoms do not improve. Do not treat diarrhea with over the counter products. Contact your doctor if you have diarrhea that lasts more than 2 days or if it is severe and watery. This medicine can make you more sensitive to the sun. Keep out of the sun. If you cannot avoid being in the sun, wear protective clothing and use sunscreen. Do not use sun lamps or tanning beds/booths. You have been given the following additional information: COPD Flare Smoking Cessation Albuterol Sulfate Pressurized inhalation, suspension Albuterol Sulfate Nebulizer solution Prednisone Oral tablet Azithromycin Oral tablet (Electronically signed by Valentín Messina MD 03/12/2016 18:50)
--- NOTE | 2016-03-12 18:50 | ED MAR SUMMARY ---
..... Medication Administration Record [facility] [address] [place] [address] Patient: MEMO DING Visit ID: [id number] 46y, M Weight: 68.0 kg Height/Length: 70 in BMI: 21.5 ALLERGIES: No Known Drug Allergy Given 19:33 03/09/2016 Marcial De La Cruz R.N. Medication Administered: DUONEB [NEB TX] (IPRATROPIUM-ALBUTEROL), Dose: 1 unit dose Neb TX. Medication Ordered: DuoNeb Neb Tx 1 unit dose (NOW). Given :57 03/09/2016 Marcial De La Cruz R.N. Medication Administered: SOLU-MEDROL [IVP] (METHYLPREDNISOLONE SODIUM SUCC), Dose: 125 mg IVP over 2 minute(s), Site: #1 left forearm. Medication Ordered: Solu-MEDROL IV 125 mg (NOW). Given :58 03/09/2016 Marcial De La Cruz R.N. Medication Administered: ALBUTEROL [NEB TX], Dose: 7.5 mg Neb TX. Medication Ordered: Albuterol Neb Tx 7.5 mg (once over an hour after duoneb treatment). Given :57 03/09/2016 Marcial De La Cruz R.N. Medication Administered: ALBUTEROL [NEB TX], Dose: 7.5 mg Neb TX. Medication Ordered: Albuterol Neb Tx 7.5 mg (once now over 1 hour). Given 00:10 03/10/2016 Marcial Navas R.N. Medication Administered: MAGNESIUM SULFATE [IVP] (MAGNESIUM SULFATE IN D5W), Dose: 2 gm IVP over 30 minute(s), Site: #1 left forearm. Medication Ordered: Magnesium Sulfate IV 2 gm/50mL (over 20 minutes).
--- NOTE | 2016-03-12 18:50 | ED DISCHARGE INSTRUCTIONS ---
Patient: MEMO DING General Instructions [facility] VisitID: [id number] [address], [place] [address] 46y, M Registration Date/Time: 03/09/2016 COPD. INSTRUCTIONS Do not smoke- benefits of smoking cessation discussed (>3 -10 minutes). Seek medical help to quit smoking. Warnings: Further evaluation is necessary. GENERAL WARNINGS: Return or contact your physician immediately if your condition worsens or changes unexpectedly, if not improving as expected, or if other problems arise. Your Current Medications: CONTINUE TAKING THE FOLLOWING MEDICATIONS: Albuterol Sulfate Inhalation : PRN. Prescription Medications: Albuterol HFA oral inhaler: inhale 2 puffs via spacer every 4 hours as needed. Dispense one (1) unit. No refill. Albuterol 0.083% Inhalation Solution: inhale 1 unit dose (3 mL) via nebulizer every 6 hours as needed for breathing problems. Dispense twenty-five (25) units. No refills. Prednisone 20 mg: take 3 orally every day for 5 days. Dispense fifteen (15). No refills. Zithromax 250 mg tablets: take 2 orally today, followed by 1 daily for the next 4 days. No refills. Substitution is permissible. Understanding of the discharge instructions verbalized by patient. Follow-up with: [facility], , , [address], , [place], [address] Follow up tomorrow. Call for an appointment. ADDITIONAL INFORMATION COPD Flare Both emphysema and chronic bronchitis are forms of chronic obstructive pulmonary disease (COPD). It is most often caused by many years of smoking tobacco. Many things can make your lung disease suddenly get worse. These causes include the common cold, pneumonia, acute bronchitis, missing doses of your regular breathing medicines, or being around smoke, dust, or other air pollutants. A COPD flare may last 7 to 14 days. Your doctor may prescribe medicineto relax your airways and prevent wheezing. Your doctor may also prescribe antibiotics if he or she thinks you havea bacterial infection. Prednisone can helpease inflammation in a severe attack. Home care Here are things you can do at home: Drink lots of water or other fluids (at least 10 glasses a day) during an attack. This will loosen lung secretions and make it easier to breathe. If you have heart or kidney disease, check with your doctor before you drink extra amounts of fluids. Take prescribed medicine exactly at the times advised. If you have a hand-held inhaler or aerosol breathing medicine, don't use it more than once every 4 hours, unless your doctor tells you to. If you were givenan antibiotic or prednisone, take all of the medicine even if you are feeling better after a few days. Don't smoke. Avoid being aroundthe smoke of others. If you were given an inhaler, use it exactly as directed. If you need to use it more often than prescribed, your condition may be getting worse. Call your doctor. Follow-up care Follow up with your health care provider.If you are 65 or older or have chronic asthma or COPD, you should get a single dose of the pneumococcal vaccine and aflu shot each year. You may need a second dose of the pneumococcal vaccine if you had the first dose at a younger age. Your health care provider will let you know if you need a second dose. For all other people, the usual dose for the pneumococcal vaccine is 1 or 2 shots. Yourprovider can discuss this with you. When to seek medical care Get prompt medical attention ifany of these occur: Increased wheezing or shortness of breath Need to use your inhalers more often than usual without relief Fever of 100.4F(38C) or higher, or as directed by your health care provider Coughing up lots of dark-colored or bloody sputum (mucus) Chest pain with each breath You do not start to improve within 24 hours How To Quit Smoking Smoking is one of the hardest habits to break. About half of all those who have ever smoked have been able to quit, and most of those (about 70%) who still smoke want to quit. Here are some of the best ways to stop smoking. Keep Trying: It takes most smokers about 8 tries before they are finally able to fully quit. So, the more often you try and fail, the better your chance of quitting the next time! So, don't give up! Go Cold Antimony: Most ex-smokers quit cold turkey. Trying to cut back gradually doesn't seem to work as well, perhaps because it continues the smoking habit. Also, it is possible to fool yourself by inhaling more while smoking fewer cigarettes. This results in the same amount of nicotine in your body! Get Support: Support programs can make an important difference, especially for the heavy smoker. These groups offer lectures, methods to change your behavior and peer support. Call the free national Quitline for more information. 941-YLFH-DMF (109-612-4494). Low-cost or free programs are offered by many hospitals, local chapters of the [place] [employer] (545-193-4194) and the [employer] [employer] (526-924-9991). Support at home is important too. Non-smokers can help by offering praise and encouragement. If the smoker fails to quit, encourage them to try again! Tocr-Bui-Vjpcxpj Medicines: For those who can't quit on their own, Nicotine Replacement Therapy (NRT) may make quitting much easier. Certain aids such as the nicotine patch, gum and lozenge are available without a prescription. However, it is best to use these under the guidance of your doctor. The skin patch provides a steady supply of nicotine to the body. Nicotine gum and lozenge gives temporary bursts of low levels of nicotine. Both methods take the edge off the craving for cigarettes. WARNING: If you feel symptoms of nicotine overdose, such as nausea, vomiting, dizziness, weakness, or fast heartbeat, stop using these and see your doctor. Prescription Medicines: After evaluating your smoking patterns and prior attempts at quitting, your doctor may offer a prescription medicine such as bupropion (Zyban, Wellbutrin), varenicline (Chantix, Champix), a niocotine inhaler or nasal spray. Each has its unique advantage and side effects which your doctor can review with you. Health Benefits Of Quitting: The benefits of quitting start right away and keep improving the longer you go without smokin minutes: blood pressure and pulse return to normal 8 hours: oxygen levels return to normal 2 days: ability to smell and taste begins to improve as damaged nerves start to regrow 2-3 weeks: circulation and lung function improves 1-9 months: decreased cough, congestion and shortness of breath; less tired 1 year: risk of heart attack decreases by half 5 years: risk of lung cancer decreases by half; risk of stroke becomes the same as a non-smoker For information about how to quit smoking, visit the following links: [employer] , Clearing the Air, Quit Smoking Today - an online booklet. http://www.smokefree.gov/pubs/clearing_the_air.pdf Smokefree.gov http://smokefree.gov/ QuitNet http://www.quitnet.com/ Albuterol Sulfate Pressurized inhalation, suspension What is this medicine? ALBUTEROL (al BYOO ter ole) is a bronchodilator. It helps open up the airways in your lungs to make it easier to breathe. This medicine is used to treat and to prevent bronchospasm. How should I use this medicine? This medicine is for inhalation through the mouth. Follow the directions on your prescription label. Take your medicine at regular intervals. Do not use more often than directed. Make sure that you are using your inhaler correctly. Ask you doctor or health care provider if you have any questions. Talk to your machine whitener regarding the use of this medicine in children. Special care may be needed. What side effects may I notice from receiving this medicine? Side effects that you should report to your doctor or health regular senior care provider as soon as possible: allergic reactions like skin rash, itching or hives, swelling of the face, lips, or tongue breathing problems chest pain feeling faint or lightheaded, falls high blood pressure irregular heartbeat fever muscle cramps or weakness pain, tingling, numbness in the hands or feet vomiting Side effects that usually do not require medical attention (report to your doctor or health regular senior care provider if they continue or are bothersome): cough difficulty sleeping headache nervousness or trembling stomach upset stuffy or runny nose throat irritation unusual taste What may interact with this medicine? anti-infectives like chloroquine and pentamidine caffeine cisapride diuretics medicines for colds medicines for depression or for emotional or psychotic conditions medicines for weight loss including some herbal products methadone some antibiotics like clarithromycin, erythromycin, levofloxacin, and linezolid some heart medicines steroid hormones like dexamethasone, cortisone, hydrocortisone theophylline thyroid hormones What if I miss a dose? If you miss a dose, use it as soon as you can. If it is almost time for your next dose, use only that dose. Do not use double or extra doses. Where should I keep my medicine? Keep out of the reach of children. Store at room temperature between 15 and 30 degrees C (59 and 86 degrees F). The contents are under pressure and may burst when exposed to heat or flame. Do not freeze. This medicine does not work as well if it is too cold. Throw away any unused medicine after the expiration date. Inhalers need to be thrown away after the labeled number of puffs have been used or by the expiration date; whichever comes first. Ventolin HFA should be thrown away 12 months after removing from foil pouch. Check the instructions that come with your medicine. What should I tell my health care provider before I take this medicine? They need to know if you have any of the following conditions: diabetes heart disease or irregular heartbeat high blood pressure pheochromocytoma seizures thyroid disease an unusual or allergic reaction to albuterol, levalbuterol, sulfites, other medicines, foods, dyes, or preservatives or trying to get breast-feeding What should I watch for while using this medicine? Tell your doctor or health regular senior care provider if your symptoms do not improve. Do not use extra albuterol. If your asthma or bronchitis gets worse while you are using this medicine, call your doctor right away. If your mouth gets dry try chewing sugarless gum or sucking hard candy. Drink water as directed. Albuterol Sulfate Nebulizer solution What is this medicine? ALBUTEROL (al BYOO ter ole) is a bronchodilator. It helps to open up the airways in your lungs to make it easier to breathe. This medicine is used to treat and to prevent bronchospasm. How should I use this medicine? This medicine is used in a nebulizer. Nebulizers make a liquid into an aerosol that you breathe in through your mouth or your mouth and nose into your lungs. You will be taught how to use your nebulizer. Follow the directions on your prescription label. Take your medicine at regular intervals. Do not use more often than directed. Talk to your machine whitener regarding the use of this medicine in children. Special care may be needed. What side effects may I notice from receiving this medicine? Side effects that you should report to your doctor or health regular senior care provider as soon as possible: allergic reactions like skin rash, itching or hives, swelling of the face, lips, or tongue breathing problems chest pain feeling faint or lightheaded, falls high blood pressure irregular heartbeat fever muscle cramps or weakness pain, tingling, numbness in the hands or feet vomiting Side effects that usually do not require medical attention (report to your doctor or health regular senior care provider if they continue or are bothersome): cough difficulty sleeping headache nervousness, trembling stomach upset stuffy or runny nose throat irritation unusual taste What may interact with this medicine? anti-infectives like chloroquine and pentamidine caffeine cisapride diuretics medicines for colds medicines for depression or emotional or psychotic conditions medicines for weight loss including some herbal products methadone some antibiotics like clarithromycin, erythromycin, levofloxacin, and linezolid some heart medicines steroid hormones like dexamethasone, cortisone, hydrocortisone theophylline thyroid hormones What if I miss a dose? If you miss a dose, use it as soon as you can. If it is almost time for your next dose, use only that dose. Do not use double or extra doses. Where should I keep my medicine? Keep out of the reach of children. Store between 2 and 25 degrees C (36 and 77 degrees F). Do not freeze. Protect from light. Throw away any unused medicine after the expiration date. Most products are kept in the foil package until time of use. Some products can be used up to 1 week after they are removed from the foil pouch. Check the instructions that come with your medicine. What should I tell my health care provider before I take this medicine? They need to know if you have any of the following conditions: diabetes heart disease or irregular heartbeat high blood pressure pheochromocytoma seizures thyroid disease an unusual or allergic reaction to albuterol, levalbuterol, sulfites, other medicines, foods, dyes, or preservatives or trying to get breast-feeding What should I watch for while using this medicine? Tell your doctor or health regular senior care provider if your symptoms do not improve. Do not use extra albuterol. Call your doctor right away if your asthma or bronchitis gets worse while you are using this medicine. If your mouth gets dry try chewing sugarless gum or sucking hard candy. Drink water as directed. Prednisone Oral tablet What is this medicine? PREDNISONE (PRED ni sone) is a corticosteroid. It is commonly used to treat inflammation of the skin, joints, lungs, and other organs. Common conditions treated include asthma, allergies, and arthritis. It is also used for other conditions, such as blood disorders and diseases of the adrenal glands. How should I use this medicine? Take this medicine by mouth with a glass of water. Follow the directions on the prescription label. Take this medicine with food. If you are taking this medicine once a day, take it in the morning. Do not take more medicine than you are told to take. Do not suddenly stop taking your medicine because you may develop a severe reaction. Your doctor will tell you how much medicine to take. If your doctor wants you to stop the medicine, the dose may be slowly lowered over time to avoid any side effects. Talk to your machine whitener regarding the use of this medicine in children. Special care may be needed. What side effects may I notice from receiving this medicine? Side effects that you should report to your doctor or health regular senior care provider as soon as possible: allergic reactions like skin rash, itching or hives, swelling of the face, lips, or tongue changes in emotions or moods changes in vision depressed mood eye pain fever or chills, cough, sore throat, pain or difficulty passing urine increased thirst swelling of ankles, feet Side effects that usually do not require medical attention (report to your doctor or health regular senior care provider if they continue or are bothersome): confusion, excitement, restlessness headache nausea, vomiting skin problems, acne, thin and shiny skin trouble sleeping weight gain What may interact with this medicine? Do not take this medicine with any of the following medications: metyrapone mifepristone This medicine may also interact with the following medications: aminoglutethimide amphotericin B aspirin and aspirin-like medicines barbiturates certain medicines for diabetes, like glipizide or glyburide cholestyramine cholinesterase inhibitors cyclosporine digoxin diuretics ephedrine female hormones, like estrogens and control pills isoniazid ketoconazole NSAIDS, medicines for pain and inflammation, like ibuprofen or naproxen phenytoin rifampin toxoids vaccines warfarin What if I miss a dose? If you miss a dose, take it as soon as you can. If it is almost time for your next dose, talk to your doctor or health regular senior care provider. You may need to miss a dose or take an extra dose. Do not take double or extra doses without advice. Where should I keep my medicine? Keep out of the reach of children. Store at room temperature between 15 and 30 degrees C (59 and 86 degrees F). Protect from light. Keep container tightly closed. Throw away any unused medicine after the expiration date. What should I tell my health care provider before I take this medicine? They need to know if you have any of these conditions: Nadia's syndrome diabetes glaucoma heart disease high blood pressure infection (especially a virus infection such as chickenpox, cold sores, or herpes) kidney disease liver disease mental illness myasthenia gravis osteoporosis seizures stomach or intestine problems thyroid disease an unusual or allergic reaction to lactose, prednisone, other medicines, foods, dyes, or preservatives or trying to get breast-feeding What should I watch for while using this medicine? Visit your doctor or health regular senior care provider for regular checks on your progress. If you are taking this medicine over a prolonged period, carry an identification card with your name and address, the type and dose of your medicine, and your doctor's name and address. This medicine may increase your risk of getting an infection. Tell your doctor or health regular senior care provider if you are around anyone with measles or chickenpox, or if you develop sores or blisters that do not heal properly. If you are going to have surgery, tell your doctor or health regular senior care provider that you have taken this medicine within the last twelve months. Ask your doctor or health regular senior care provider about your diet. You may need to lower the amount of salt you eat. This medicine may affect blood sugar levels. If you have diabetes, check with your doctor or health regular senior care provider before you change your diet or the dose of your diabetic medicine. Azithromycin Oral tablet What is this medicine? AZITHROMYCIN (az ith juan ATULE sin) is a macrolide antibiotic. It is used to treat or prevent certain kinds of bacterial infections. It will not work for colds, flu, or other viral infections. How should I use this medicine? Take this medicine by mouth with a full glass of water. Follow the directions on the prescription label. The tablets can be taken with food or on an empty stomach. If the medicine upsets your stomach, take it with food. Take your medicine at regular intervals. Do not take your medicine more often than directed. Take all of your medicine as directed even if you think your are better. Do not skip doses or stop your medicine early. Talk to your machine whitener regarding the use of this medicine in children. Special care may be needed. What side effects may I notice from receiving this medicine? Side effects that you should report to your doctor or health regular senior care provider as soon as possible: allergic reactions like skin rash, itching or hives, swelling of the face, lips, or tongue confusion, nightmares or hallucinations dark urine difficulty breathing hearing loss irregular heartbeat or chest pain pain or difficulty passing urine redness, blistering, peeling or loosening of the skin, including inside the mouth white patches or sores in the mouth yellowing of the eyes or skin Side effects that usually do not require medical attention (report to your doctor or health regular senior care provider if they continue or are bothersome): diarrhea dizziness, drowsiness headache stomach upset or vomiting tooth discoloration vaginal irritation What may interact with this medicine? Do not take this medicine with any of the following medications: lincomycin This medicine may also interact with the following medications: amiodarone antacids cyclosporine digoxin magnesium nelfinavir phenytoin warfarin What if I miss a dose? If you miss a dose, take it as soon as you can. If it is almost time for your next dose, take only that dose. Do not take double or extra doses. Where should I keep my medicine? Keep out of the reach of children. Store at room temperature between 15 and 30 degrees C (59 and 86 degrees F). Throw away any unused medicine after the expiration date. What should I tell my health care provider before I take this medicine? They need to know if you have any of these conditions: kidney disease liver disease irregular heartbeat or heart disease an unusual or allergic reaction to azithromycin, erythromycin, other macrolide antibiotics, foods, dyes, or preservatives or trying to get breast-feeding What should I watch for while using this medicine? Tell your doctor or health regular senior care provider if your symptoms do not improve. Do not treat diarrhea with over the counter products. Contact your doctor if you have diarrhea that lasts more than 2 days or if it is severe and watery. This medicine can make you more sensitive to the sun. Keep out of the sun. If you cannot avoid being in the sun, wear protective clothing and use sunscreen. Do not use sun lamps or tanning beds/booths. You have been given the following additional information: COPD Flare Smoking Cessation Albuterol Sulfate Pressurized inhalation, suspension Albuterol Sulfate Nebulizer solution Prednisone Oral tablet Azithromycin Oral tablet (Electronically signed by Valentín Messina MD 03/12/2016 18:50)
--- NOTE | 2016-03-12 18:50 | ED MAR SUMMARY ---
..... Medication Administration Record [facility] [address] [place] [address] Patient: MEMO DING Visit ID: [id number] 46y, M Weight: 68.0 kg Height/Length: 70 in BMI: 21.5 ALLERGIES: No Known Drug Allergy Given 19:33 03/09/2016 Marcial De La Cruz R.N. Medication Administered: DUONEB [NEB TX] (IPRATROPIUM-ALBUTEROL), Dose: 1 unit dose Neb TX. Medication Ordered: DuoNeb Neb Tx 1 unit dose (NOW). Given :57 03/09/2016 Marcial De La Cruz R.N. Medication Administered: SOLU-MEDROL [IVP] (METHYLPREDNISOLONE SODIUM SUCC), Dose: 125 mg IVP over 2 minute(s), Site: #1 left forearm. Medication Ordered: Solu-MEDROL IV 125 mg (NOW). Given :58 03/09/2016 Marcial De La Cruz R.N. Medication Administered: ALBUTEROL [NEB TX], Dose: 7.5 mg Neb TX. Medication Ordered: Albuterol Neb Tx 7.5 mg (once over an hour after duoneb treatment). Given :57 03/09/2016 Marcial De La Cruz R.N. Medication Administered: ALBUTEROL [NEB TX], Dose: 7.5 mg Neb TX. Medication Ordered: Albuterol Neb Tx 7.5 mg (once now over 1 hour). Given 00:10 03/10/2016 Marcial Navas R.N. Medication Administered: MAGNESIUM SULFATE [IVP] (MAGNESIUM SULFATE IN D5W), Dose: 2 gm IVP over 30 minute(s), Site: #1 left forearm. Medication Ordered: Magnesium Sulfate IV 2 gm/50mL (over 20 minutes).
== END 2016-03-10 00:45 | disposition home or self-care (01) ==
LOC: ED SRH 19:00
DX: J44.9 Chronic obstructive pulmonary disease, unspecified (principal); F17.200 Nicotine dependence, unspecified, uncomplicated
CPT/HCPCS: 90047; 92720; 95059